=== PATIENT | male | born 1995 | race American Indian/Alaskan Native ===

== ENCOUNTER 2018-12-12 03:05 | Emergency (ER) | payer SELFPAY ==
[2018-12-12] MEDS ORDERED: DUONEB *Not for PRN Use IH ONE (03:12)
[2018-12-12 03:13] VITALS: BP 146/97
== END 2018-12-12 08:29 | disposition left against medical advice (07) ==
LOC: ED 03:05
DX: J45.909 Unspecified asthma, uncomplicated (principal); Z53.21 Procedure and treatment not carried out due to patient leaving prior to being seen by health care provider
CPT/HCPCS: 94640

== ENCOUNTER 2018-12-13 21:27 | Emergency (ER) | payer OTHER ==
[2018-12-13 21:31] VITALS: BP 144/93
[2018-12-13] MEDS ORDERED: PROVENTIL IH ONE (21:32)
[2018-12-13] MEDS ORDERED: DECADRON IM ONE (21:32)
[2018-12-13] MEDS ORDERED: ATROVENT IH ONE (21:32)
--- NOTE | 2018-12-13 21:32 | Emergency Department Report ---
Blank Doc - Documentation Documentation: This is a 23-year-old male that presents with wheezing and SOB. This initial assessment/diagnostic orders/clinical plan/treatment(s) is/are subject to change based on patient's health status, clinical progression and re- assessment by fellow clinical providers in the ED. Further treatment and workup at subsequent clinical providers discretion. Patient/guardians urged not to elope from the ED as their condition may be serious if not clinically assessed and managed. Initial orders include: 1- Patient sent to [facility] for further evaluation and treatment 2- breathing treatment/steroids
--- NOTE | 2018-12-13 22:56 | Emergency Department Report ---
ED Asthma HPI - General Chief Complaint: Dyspnea/Respdistress Stated Complaint: WHEEZING Time Seen by Provider: 12/13/18 21:31 Source: patient Mode of arrival: Ambulatory Limitations: No Limitations - History of Present Illness Initial Comments: [id number] male with past medical history of asthma who is been out of his medication for the past several days is most department complaining of a 3 hour episode of wheezing and vague coughing associated with some shortness of breath. Position was department for treatment of his asthma exa cerbation as he has no medications at home MD Complaint: wheezing -: Sudden Severity: mild Context: ran out of meds Associated Symptoms: dry cough - Related Data Previous Rx's Medication Instructions Recorded Last Taken Type ALBUTEROL Inhaler (OR & NICU) 1 puff IH Q4-6H PRN #1 inha 12/13/18 Unknown Rx [ProAir HFA Inhaler] Montelukast [Singulair] 10 mg PO QPM #14 tablet 12/13/18 Unknown Rx predniSONE [Deltasone] 50 mg PO QDAY #5 tab 12/13/18 Unknown Rx Allergies Allergy/AdvReac Type Severity Reaction Status Date / Time No Known Allergies Allergy Verified 12/12/18 03:11 ED Review of Systems ROS: Stated complaint: WHEEZING Other details as noted in HPI Constitutional: denies: chills, fever Eyes: denies: eye pain, eye discharge, vision change ENT: denies: ear pain, throat pain Respiratory: shortness of breath, wheezing. denies: cough Cardiovascular: denies: chest pain, palpitations Endocrine: no symptoms reported Gastrointestinal: denies: abdominal pain, nausea, diarrhea Genitourinary: denies: urgency, dysuria Musculoskeletal: denies: back pain, joint swelling, arthralgia Skin: denies: rash, lesions Neurological: denies: headache, weakness, paresthesias Psychiatric: denies: anxiety, depression Hematological/Lymphatic: denies: easy bleeding, easy bruising ED Past Medical Hx - Past Medical History Previous Medical History?: Yes Hx Asthma: Yes - Surgical History Past Surgical History?: No - Social History Smoking Status: Never Smoker Substance Use Type: None - Medications Home Medications: Home Medications Medication Instructions Recorded Confirmed Last Taken Type ALBUTEROL Inhaler (OR & NICU) 1 puff IH Q4-6H PRN #1 inha 12/13/18 Unknown Rx [ProAir HFA Inhaler] Montelukast [Singulair] 10 mg PO QPM #14 tablet 12/13/18 Unknown Rx predniSONE [Deltasone] 50 mg PO QDAY #5 tab 12/13/18 Unknown Rx ED Physical Exam - General Limitations: No Limitations General appearance: alert, in no apparent distress - Head Head exam: Present: atraumatic, normocephalic - Eye Eye exam: Present: normal appearance - ENT ENT exam: Present: mucous membranes moist - Neck Neck exam: Present: normal inspection - Respiratory Respiratory exam: Present: normal lung sounds bilaterally, wheezes. Absent: respiratory distress - Cardiovascular Cardiovascular Exam: Present: regular rate, normal rhythm. Absent: systolic murmur, diastolic murmur, rubs, gallop - GI/Abdominal GI/Abdominal exam: Present: soft, normal bowel sounds - Rectal Rectal exam: Present: deferred - Extremities Exam Extremities exam: Present: normal inspection - Back Exam Back exam: Present: normal inspection - Neurological Exam Neurological exam: Present: alert, oriented X3 - Psychiatric Psychiatric exam: Present: normal affect, normal mood - Skin Skin exam: Present: warm, dry, intact, normal color. Absent: rash ED Course Vital Signs 12/13/18 12/13/18 12/13/18 21:30 21:49 22:11 Temperature 98.0 F Pulse Rate 97 H Pulse Rate [ 66 80 Anterior] Pulse Rate [ 66 80 Posterior] Respiratory 15 Rate Respiratory 21 20 Rate [Anterior] Respiratory 21 20 Rate [Posterior ] Blood Pressure 144/93 O2 Sat by Pulse 97 Oximetry ED Medical Decision Making - Medical Decision Making [id number] male status post asthma exacerbation, treated with sterile saline Brommer dilators much better after treatment. He Zammuto no acute distress. No wheezing present. Critical care attestation.: If time is entered above; I have spent that time in minutes in the direct care of this critically ill patient, excluding procedure time. ED Disposition Clinical Impression: Asthma, Medication refill Disposition: DC-01 TO HOME OR SELFCARE Is pt being admited?: No Does the pt Need Aspirin: No Condition: Stable Instructions: Asthma (ED), Reactive Airways Disease (ED) Additional Instructions: Please return to emergency department,SHOULD YOU began feeling and at times niches excessive coughing or restart wheezing and medication does not resolve the symptoms of the to use his Referrals: [facility]BROCTON MD HERVE [Primary Care Provider] - 3-5 Days
== END 2018-12-13 23:40 | disposition home or self-care (01) ==
LOC: ED 21:27
DX: J45.901 Unspecified asthma with (acute) exacerbation (principal); Z76.0 Encounter for issue of repeat prescription
CPT/HCPCS: 94640; 96372; 99282; J1100

== ENCOUNTER 2018-12-18 04:25 | Emergency (ER) | payer OTHER ==
[2018-12-18] MEDS ORDERED: DUONEB *Not for PRN Use IH ONE (04:35)
[2018-12-18 04:51] VITALS: BP 129/77
== END 2018-12-18 08:33 | disposition left against medical advice (07) ==
LOC: ED 04:25
DX: R06.2 Wheezing (principal); Z53.21 Procedure and treatment not carried out due to patient leaving prior to being seen by health care provider
CPT/HCPCS: 94640

== ENCOUNTER 2018-12-18 23:20 | Emergency (ER) | payer OTHER ==
[2018-12-18] MEDS ORDERED: ATROVENT IH ONE (23:36)
[2018-12-18] MEDS ORDERED: PROVENTIL IH ONE (23:36)
[2018-12-18] MEDS ORDERED: MAGNESIUM SULFATE 2GM/50ML 2 GM/50 ML BAG IV ONE (23:37)
[2018-12-18] MEDS ORDERED: SOLU-Medrol IV ONE (23:37)
--- NOTE | 2018-12-18 23:42 | Emergency Department Report ---
HPI - General Chief Complaint: Dyspnea/Respdistress Time Seen by Provider: 12/18/18 23:33 - HPI HPI: Room 7 The patient is a 23-year-old male presented with a chief complaint of shortness of breath. Patient states the proximal one hour prior to arrival he developed wheezing. Patient states the shortness of breath feels like his asthma. Patient is to cough that is nonproductive. Patient denies history of fever. The patient states he ran out of his asthma medication so he has not been able to self medicate Location: Lungs Duration: One hour Quality: Shortness of breath Severity:. Moderate Modifying factors: [see above] Context: [see above] Mode of transportation: [not driving] ED Past Medical Hx - Past Medical History Previous Medical History?: Yes Hx Asthma: Yes - Surgical History Past Surgical History?: No - Family History Family history: no significant - Social History Smoking Status: Never Smoker Substance Use Type: None (denies illicit drug use) - Medications Home Medications: Home Medications Medication Instructions Recorded Confirmed Last Taken Type ALBUTEROL Inhaler (OR & NICU) 1 puff IH Q4-6H PRN #1 inha 12/13/18 Unknown Rx [ProAir HFA Inhaler] Montelukast [Singulair] 10 mg PO QPM #14 tablet 12/13/18 Unknown Rx predniSONE [Deltasone] 50 mg PO QDAY #5 tab 12/13/18 Unknown Rx ALBUTEROL Inhaler (OR & NICU) 2 puff IH QID PRN #1 inhalation 12/19/18 Unknown Rx [Proair] Prednisone [predniSONE 10 mg 10 mg PO .TAPER #1 tab.ds.pk 12/19/18 Unknown Rx (6-Day Pack, 21 Tabs)] ED Review of Systems ROS: Stated complaint: VINCENT WHEEZING Other details as noted in HPI Constitutional: denies: fever Eyes: denies: eye pain ENT: denies: throat pain Respiratory: cough, shortness of breath, wheezing Cardiovascular: denies: chest pain Endocrine: no symptoms reported Gastrointestinal: denies: abdominal pain Genitourinary: denies: dysuria Musculoskeletal: denies: back pain Neurological: denies: headache Physical Exam - Physical Exam Vital Signs: Vital Signs 12/18/18 23:23 Pulse Rate 96 H Respiratory 20 Rate Blood Pressure 111/80 [Right] O2 Sat by Pulse 92 Oximetry Physical Exam: GENERAL: The patient is well-developed well-nourished male sitting on stretcher exhibiting slightly increased work of breathing. [] HEENT: Normocephalic. Atraumatic. Extraocular motions are intact. Patient has moist mucous membranes. NECK: Supple. Trachea midline CHEST/LUNGS: Diffuse wheezing. Excessive muscle use HEART/CARDIOVASCULAR: Regular. There is no tachycardia. There is no gallop rub or murmur. ABDOMEN: Abdomen is soft, nontender. Patient has normal bowel sounds. There is no abdominal distention. SKIN: There is no rash. There is no edema. There is no diaphoresis. NEURO: The patient is awake, alert, and oriented. The patient is cooperative. The patient has normal speech MUSCULOSKELETAL: There is no evidence of acute injury. ED Course Vital Signs 12/18/18 23:23 Pulse Rate 96 H Respiratory 20 Rate Blood Pressure 111/80 [Right] O2 Sat by Pulse 92 Oximetry - Reevaluation(s) Reevaluation #1: 12/19/18 00:19 Patient still receiving neb. States he is feeling improved Reevaluation #2: 12/19/18 01:10 Lungs clear to auscultation bilaterally. SPO2 98% on room air. Patient states he feels good ED Medical Decision Making - Radiology Data Radiology results: report reviewed (chest x-ray), image reviewed (chest x-ray) interpreted by me: Chest x-ray-right lower lobe atelectasis. No focal infiltrates, no pneumothorax [facility] [address] [place] [address] XRay Report Signed Patient: AMY MONSALVE#: [id number] : 1995 Acct:[id number] Age/Sex: 23 / M ADM Date: 12/18/18 Loc: ED Attending Dr: Ordering Physician: OVIDIO MCGILL MD Date of Service: 12/18/18 Procedure(s): XR chest 1V ap Accession Number(s): [id number] cc: OVIDIO MCGILL MD Fluoro Time In Minutes: PROCEDURE: Chest. TECHNIQUE: Portable AP view. HISTORY: shortness of breath, wheezing COMPARISONS: None. FINDINGS: The heart and mediastinum appear normal. The lungs are clear and well expanded. There are no pleural effusions. The soft tissues and regional skeleton are unremarkable. IMPRESSION: Negative portable chest. This document is electronically signed by Phani Hutchison MD., December 19 2018 12:45:13 AM ET Transcribed By: JOHN Dictated By: PHANI HUTCHISON MD Electronically Authenticated By: PHANI HUTCHISON MD Signed Date/Time: 12/19/18 0047 DD/ 48 TD/TT: 12/18/182348 - Differential Diagnosis asthma exacerbation Critical care attestation.: If time is entered above; I have spent that time in minutes in the direct care of this critically ill patient, excluding procedure time. ED Disposition Clinical Impression: Acute asthma exacerbation, Shortness of breath Disposition: - TO HOME OR SELFCARE Is pt being admited?: No Does the pt Need Aspirin: No Condition: Stable Instructions: Asthma (ED) Additional Instructions: Return to the emergency department immediately should you develop worsening symptoms, fever, inability to tolerate food or liquid or any other concerns. Prescriptions: Prednisone [predniSONE 10 mg (6-Day Pack, 21 Tabs)] 10 mg PO .TAPER #1 tab.ds.pk ALBUTEROL Inhaler (OR & NICU) [Proair] 2 puff IH QID PRN #1 inhalation PRN Reason: Shortness Of Breath Referrals: [facility] [Outside] - 3-5 Days Time of Disposition: 01:11
--- NOTE | 2018-12-19 00:47 | XRay Report ---
PROCEDURE: Chest. TECHNIQUE: Portable AP view. HISTORY: shortness of breath, wheezing COMPARISONS: None. FINDINGS: The heart and mediastinum appear normal. The lungs are clear and well expanded. There are no pleural effusions. The soft tissues and regional skeleton are unremarkable. IMPRESSION: Negative portable chest. This document is electronically signed by Phani Haywood MD., December 19 2018 12:45:13 AM ET
[2018-12-19 00:55] VITALS: BP 106/55
== END 2018-12-19 01:23 | disposition home or self-care (01) ==
LOC: ED 23:20
DX: J45.909 Unspecified asthma, uncomplicated (principal)
CPT/HCPCS: 71045; 94640; 96365; 96375; 99284; J2930; J3475

== ENCOUNTER 2019-02-12 04:30 | Emergency (ER) | payer SELFPAY ==
[2019-02-12] MEDS ORDERED: ATROVENT IH ONE ×2 (04:51→04:54)
[2019-02-12] MEDS ORDERED: PROVENTIL IH ONE ×2 (04:51→04:54)
[2019-02-12] MEDS ORDERED: DELTASONE PO ONE (04:51)
--- NOTE | 2019-02-12 05:27 | Emergency Department Report ---
ED General Adult HPI - General Chief complaint: Dyspnea/Respdistress Stated complaint: WHEEZING Time Seen by Provider: 02/12/19 05:20 Source: patient Mode of arrival: Ambulatory Limitations: No Limitations - History of Present Illness Initial comments: 23 y.o. male with a history of asthma presents with complaint of shortness of breath. Patient has had no prior history of intubations or admissions in the past. Patient states that he is out of his inhaler and had an asthma attack that began tonight and thus presented to the emergency department. Patient denies any cough with productive phlegm. Patient denies any fever. Severity scale (0 -10): 0 - Related Data Previous Rx's Medication Instructions Recorded Last Taken Type ALBUTEROL Inhaler (OR & NICU) 1 puff IH Q4-6H PRN #1 inha 12/13/18 Unknown Rx [ProAir HFA Inhaler] Montelukast [Singulair] 10 mg PO QPM #14 tablet 12/13/18 Unknown Rx predniSONE [Deltasone] 50 mg PO QDAY #5 tab 12/13/18 Unknown Rx ALBUTEROL Inhaler (OR & NICU) 2 puff IH QID PRN #1 inhalation 12/19/18 Unknown Rx [Proair] Prednisone [predniSONE 10 mg 10 mg PO .TAPER #1 tab.ds.pk 12/19/18 Unknown Rx (6-Day Pack, 21 Tabs)] Allergies Allergy/AdvReac Type Severity Reaction Status Date / Time No Known Allergies Allergy Verified 12/12/18 03:11 ED Review of Systems ROS: Stated complaint: WHEEZING Other details as noted in HPI Constitutional: denies: chills, fever Eyes: denies: eye pain, eye discharge, vision change ENT: denies: ear pain, throat pain Respiratory: SOB at rest, wheezing Cardiovascular: denies: chest pain, palpitations Endocrine: no symptoms reported Gastrointestinal: denies: abdominal pain, nausea, diarrhea Genitourinary: denies: urgency, dysuria Musculoskeletal: denies: back pain, joint swelling, arthralgia Skin: denies: rash, lesions Neurological: denies: headache, weakness, paresthesias Psychiatric: denies: anxiety, depression Hematological/Lymphatic: denies: easy bleeding, easy bruising ED Past Medical Hx - Past Medical History Hx Asthma: Yes - Social History Smoking Status: Never Smoker - Medications Home Medications: Home Medications Medication Instructions Recorded Confirmed Last Taken Type ALBUTEROL Inhaler (OR & NICU) 1 puff IH Q4-6H PRN #1 inha 12/13/18 Unknown Rx [ProAir HFA Inhaler] Montelukast [Singulair] 10 mg PO QPM #14 tablet 12/13/18 Unknown Rx predniSONE [Deltasone] 50 mg PO QDAY #5 tab 12/13/18 Unknown Rx ALBUTEROL Inhaler (OR & NICU) 2 puff IH QID PRN #1 inhalation 12/19/18 Unknown Rx [Proair] Prednisone [predniSONE 10 mg 10 mg PO .TAPER #1 tab.ds.pk 12/19/18 Unknown Rx (6-Day Pack, 21 Tabs)] ED Physical Exam - General Limitations: No Limitations General appearance: alert, other - Head Head exam: Present: atraumatic, normocephalic - Eye Eye exam: Present: normal appearance - ENT ENT exam: Present: mucous membranes moist - Neck Neck exam: Present: normal inspection - Respiratory Respiratory exam: Present: wheezes. Absent: accessory muscle use - Cardiovascular Cardiovascular Exam: Present: regular rate, normal rhythm. Absent: systolic murmur, diastolic murmur, rubs, gallop - GI/Abdominal GI/Abdominal exam: Present: soft, normal bowel sounds - Rectal Rectal exam: Present: deferred - Extremities Exam Extremities exam: Present: normal inspection - Back Exam Back exam: Present: normal inspection - Neurological Exam Neurological exam: Present: alert, oriented X3 - Psychiatric Psychiatric exam: Present: normal affect, normal mood - Skin Skin exam: Present: warm, dry, intact, normal color. Absent: rash ED Course Vital Signs 02/12/19 02/12/19 04:36 05:00 Temperature 97.7 F Pulse Rate 85 60 Respiratory 22 18 Rate Blood Pressure 155/94 Blood Pressure 140/102 [Left] O2 Sat by Pulse 96 99 Oximetry ED Medical Decision Making - Medical Decision Making Patient received prednisone as well as albuterol 5 and Atrovent 0.5 mg while in emergency department. Patient was reassessed and O2 saturations greater than 94%. Patient to be discharged with albuterol MDI and prednisone therapy to be treated as an outpatient. - Differential Diagnosis viral illness; asthma exacerbation; Critical care attestation.: If time is entered above; I have spent that time in minutes in the direct care of this critically ill patient, excluding procedure time. ED Disposition Clinical Impression: Acute asthma exacerbation Disposition: DC-01 TO HOME OR SELFCARE Is pt being admited?: No Does the pt Need Aspirin: No Condition: Stable Instructions: Asthma (ED) Referrals: RIKI LYNCH MD [Primary Care Provider] - 3-5 Days Time of Disposition: 05:31 Print Language: LEBANESE
[2019-02-12 06:40] VITALS: BP 138/105
== END 2019-02-12 06:40 | disposition home or self-care (01) ==
LOC: ED 04:30
DX: J45.901 Unspecified asthma with (acute) exacerbation (principal)
CPT/HCPCS: 94644; 99282; J7512

== ENCOUNTER 2019-02-17 08:59 | Emergency (ER) | payer SELFPAY ==
[2019-02-17 09:07] VITALS: BP 150/100
[2019-02-17] MEDS ORDERED: DECADRON IM ONE (09:30)
[2019-02-17] MEDS ORDERED: DUONEB *Not for PRN Use IH ONE (09:30)
--- NOTE | 2019-02-17 09:34 | Emergency Department Report ---
ED Shortness of Breath HPI - General Chief Complaint: Adult Asthma Stated Complaint: WHEEZING/SOB Time Seen by Provider: 02/17/19 09:29 Source: patient Mode of arrival: Ambulatory Limitations: No Limitations - History of Present Illness Initial Comments: Reports he was last seen in the ER 4 days ago for same. Reports he has no money to afford buying the inhaler Complaint: shortness of breath, cough, "asthma attack" -: Gradual, days(s) Severity: mild Pain Scale: 2 Consistency: constant Improves With: bronchodilators Worsens With: exertion Known History Of: asthma Context: recent URI Associated Symptoms: cough - Related Data Previous Rx's Medication Instructions Recorded Last Taken Type ALBUTEROL Inhaler (OR & NICU) 1 puff IH Q4-6H PRN #1 inha 12/13/18 Unknown Rx [ProAir HFA Inhaler] Montelukast [Singulair] 10 mg PO QPM #14 tablet 12/13/18 Unknown Rx predniSONE [Deltasone] 50 mg PO QDAY #5 tab 12/13/18 Unknown Rx ALBUTEROL Inhaler (OR & NICU) 2 puff IH QID PRN #1 inhalation 12/19/18 Unknown Rx [Proair] Prednisone [predniSONE 10 mg 10 mg PO .TAPER #1 tab.ds.pk 12/19/18 Unknown Rx (6-Day Pack, 21 Tabs)] ALBUTEROL Inhaler (OR & NICU) 1 puff IH BID #1 inha 02/12/19 Unknown Rx [ProAir HFA Inhaler] Albuterol Sulfate [Proair 90 mcg IH BID #1 aer.pow.ba 02/12/19 Unknown Rx Respiclick] predniSONE [Deltasone] 20 mg PO QDAY #10 tab 02/12/19 Unknown Rx Albuterol Sulfate [Proair 90 mcg IH Q4HR PRN #1 each 02/17/19 Unknown Rx Respiclick] Azithromycin [Zithromax Z-ORVILLE] 250 mg PO DAILY #4 tablet 02/17/19 Unknown Rx predniSONE [Deltasone] 50 mg PO QDAY #5 tab 02/17/19 Unknown Rx Allergies Allergy/AdvReac Type Severity Reaction Status Date / Time No Known Allergies Allergy Verified 12/12/18 03:11 ED Review of Systems ROS: Stated complaint: WHEEZING/SOB Other details as noted in HPI Other: GENERAL: No weight change, fatigue, fever, chills, or night sweats SKIN: No changes in skin or hair, no itching, no rashes, no jaundice HEAD: No trauma, headache, or visual changes EYES: No blurriness, tearing, itching, acute visual loss, conjunctival discoloration, or scleral icterus EARS: No hearing loss, tinnitus, vertigo, or earache NOSE: No rhinorrhea, stuffiness, sneezing, itching, or epistaxis MOUTH: No bleeding gums, hoarseness, sore throat, or swelling CARDIAC: No new murmur, chest pain, palpitations, dyspnea on exertion, orthopnea, PND, or edema RESPIRATORY: Shortness of breath, wheeze, cough, asthma, childhood pneumonia. No sputum production, hemoptysis, GI: No change in appetite, nausea, vomiting, dysphagia, diarrhea, constipation, hematemesis, melena, hematochezia, or abdominal pain URINARY: No frequency, urgency, polyuria, dysuria, hematuria, or incontinence MUSCULOSKELETAL: No muscle weakness, joint stiffness, decrease in range of motion, redness, swelling NEUROLOGIC: No headache, loss of sensation, numbness, tingling, tremors, weakness, paralysis, seizures HEMATOLOGIC: No anemia, easy bruising, bleeding, petechiae, or purpura ENDOCRINE: No hot or cold intolerance, sweating, polyuria, polydipsia or, polyphagia no thyroid problems PSYCHIATRIC: No change in mood, no anxiety, no depression ED Past Medical Hx - Past Medical History Hx Asthma: Yes - Surgical History Past Surgical History?: No Hx Appendectomy: No - Social History Smoking Status: Never Smoker Substance Use Type: None - Medications Home Medications: Home Medications Medication Instructions Recorded Confirmed Last Taken Type ALBUTEROL Inhaler (OR & NICU) 1 puff IH Q4-6H PRN #1 inha 12/13/18 Unknown Rx [ProAir HFA Inhaler] Montelukast [Singulair] 10 mg PO QPM #14 tablet 12/13/18 Unknown Rx predniSONE [Deltasone] 50 mg PO QDAY #5 tab 12/13/18 Unknown Rx ALBUTEROL Inhaler (OR & NICU) 2 puff IH QID PRN #1 inhalation 12/19/18 Unknown Rx [Proair] Prednisone [predniSONE 10 mg 10 mg PO .TAPER #1 tab.ds.pk 12/19/18 Unknown Rx (6-Day Pack, 21 Tabs)] ALBUTEROL Inhaler (OR & NICU) 1 puff IH BID #1 inha 02/12/19 Unknown Rx [ProAir HFA Inhaler] Albuterol Sulfate [Proair 90 mcg IH BID #1 aer.pow.ba 02/12/19 Unknown Rx Respiclick] predniSONE [Deltasone] 20 mg PO QDAY #10 tab 02/12/19 Unknown Rx Albuterol Sulfate [Proair 90 mcg IH Q4HR PRN #1 each 02/17/19 Unknown Rx Respiclick] Azithromycin [Zithromax Z-ORVILLE] 250 mg PO DAILY #4 tablet 02/17/19 Unknown Rx predniSONE [Deltasone] 50 mg PO QDAY #5 tab 02/17/19 Unknown Rx ED Physical Exam - General Limitations: No Limitations - Other Other exam information: GENERAL: Patient in no acute distress HEAD: Normocephalic, atraumatic EYES: PERRLA, EOM intact, no scleral icterus, no conjunctival hemorrhage, visual alvarez and acuity wnl NOSE: No tenderness, discharge, sinus tenderness MOUTH: No erythema, bleeding, exudate HEART: Regular rate and rhythm, no murmur, S1-S2 are auscultated, pulses are symmetric LUNGS: Bilateral breath sounds, tachypnea, mild retractions, wheezing. No rales, rhonchi ABDOMEN: Normal bowel sounds, abdomen soft, no tenderness, no rebound, no guarding, no distention, no masses, no CVA tenderness MUSCULOSKELETAL: Normal joint range of motion, no redness, no swelling, no tenderness NEUROLOGIC: GCS 15, Alert and Oriented x3, Cranial nerves intact, normal sensation, normal strength, no cerebellar deficit, NIHSS 0 PSYCHIATRIC: No homicidal or suicidal ideation, no anxiety, no depression, no h allucinations SKIN: Skin is warm and dry, no wounds, no rashes ED Course Vital Signs 02/17/19 09:05 Temperature 97.9 F Pulse Rate 101 H Respiratory 16 Rate Blood Pressure 150/100 [Left] O2 Sat by Pulse 96 Oximetry ED Medical Decision Making - Medical Decision Making Patient comfortable. Reports symptom improvement. Patient agrees to use the goodrx discount and reports he can afford his prescriptions with the discount. Plan discharge with outpatient follow up. Agrees to return if any worsening or if he can not afford his prescriptions. Critical care attestation.: If time is entered above; I have spent that time in minutes in the direct care of this critically ill patient, excluding procedure time. ED Disposition Clinical Impression: Bronchitis Asthma exacerbation Qualifiers: Asthma severity: unspecified severity Asthma persistence: unspecified Qualified Code(s): J45.901 - Unspecified asthma with (acute) exacerbation Disposition: TO HOME OR SELFCARE Is pt being admited?: No Condition: Stable Instructions: Asthma (ED), Acute Bronchitis (ED) Prescriptions: predniSONE [Deltasone] 50 mg PO QDAY #5 tab Albuterol Sulfate [Proair Respiclick] 90 mcg IH Q4HR PRN #1 each PRN Reason: Wheezing Azithromycin [Zithromax Z-ORVILLE] 250 mg PO DAILY #4 tablet Referrals: [facility] [place] [Outside] - 2-3 Days Time of Disposition: 10:23
[2019-02-17] MEDS ORDERED: PROAIR IH ONE (10:09)
[2019-02-17] MEDS ORDERED: PROVENTIL IH NR (10:15)
[2019-02-17] MEDS ORDERED: ZITHROMAX PO ONE (10:19)
== END 2019-02-17 10:43 | disposition home or self-care (01) ==
LOC: ED 08:59
DX: J45.901 Unspecified asthma with (acute) exacerbation (principal)
CPT/HCPCS: 94640; 96372; 99283; J1100; 94644